=== PATIENT | female | born 1945 | race Caucasian/White ===

== ENCOUNTER 2017-08-16 18:33 | Emergency (ER) | payer BC ==
[~2017-08-16] VITALS: Ht 167.6 cm; Wt 92.0 kg
[~2017-08-16 18:33] MED LIST: ASPI-183 PO; BOSW5TAB PO; CALC-179 PO; COQ-100C2 PO; EZET10 PO; FISH500C PO; IBUP-232 PO; LOSA100T3 PO; PERC5TAB12 PO; ROSU40 PO; ZINC10LO4 PO
[2017-08-16 18:39] VITALS: BP 120/76; PULSE 106; RESP 18; TEMP 102.9; O2SAT 95
--- NOTE | 2017-08-16 18:53 | PD ---
HPI Chief Complaint: Skin Problem Time Seen by Provider: 18:50 Travel History International Travel<30 days: No Contact w/Intl Traveler<30days: No Traveled to known affect area: No History of Present Illness HPI Patient is a 72-year-old female presents emergency department for evaluation of fever and not feeling well and having some mild discharge from her abdomen. 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 She states she's been battling this for nearly 2 decades. She is concerned that she might have a recurrent infection. She also endorses some mild cough and congestion and states she just been feeling one down for the past 24-48 hours. States his symptoms are moderate, roughly worsening, over the past 24-48 hours, context as above, associated signs symptoms as above PFSH Past Medical History Hx Anticoagulant Therapy: No Cardiovascular Problems: Yes (HYPERLIPIDEMIA,HTN) High Cholesterol: Yes Chemotherapy: No Cerebrovascular Accident: No Diabetes: No Diminished Hearing: No Hypertension: Yes Respiratory: No Tetanus Vaccination: Unknown Influenza Vaccination: Yes Tubal Ligation: Yes Past Surgical History Abdominal Surgery: Yes Hysterectomy: Yes Mastectomy: Yes (BILATERAL) Other Surgery: Yes (MASECTOMY AND RECONSTRUCTION SX) Social History Alcohol Use: Yes (SOCIALLY) Tobacco Use: No Substance Use: No Allergies-Medications (Allergen,Severity, Reaction): Coded Allergies: No Known Allergies (Unverified Allergy, Unknown, 08/16/17) Reported Meds & Prescriptions Reported Meds & Active Scripts Active Keflex (Cephalexin) 500 Mg Cap 500 Mg PO Q6H 7 Days Reported [Magnesium ] 138 Mg PO DAILY Magnesium Citrate 100 Mg Tab 100 Mg PO DAILY PRN Calcium Carbonate 1,500 Mg Tab 333 Mg PO DAILY 1,500 mg calcium carbonate (600 mg elemental calcium) Zetia (Ezetimibe) 10 Mg Tab 10 Mg PO DAILY Osteo Bi-Flex One A Day (Ngykiyimj-Bmcyckquvhm-Pzjgpgd) 1 Tab 1 Tab PO DAILY Zinc (Zinc Gluconate) 10 Mg Juan Antonio 5 Mg PO DAILY Fish Oil ([place]-3 Fatty Acids) 500 Mg Cap 1 Cap PO DAILY Aspirin 325 Mg Tab 325 Mg PO DAILY Losartan-Hydrochlorothiazide 100-12.5 Mg Tab 1 Tab PO DAILY Crestor (Rosuvastatin Calcium) 40 Mg Tab 40 Mg PO DAILY Review of Systems Except as stated in HPI: all other systems reviewed are Neg Physical Exam Narrative GENERAL: Well-developed, overweight female appears well and in no obvious distress, nontoxic appearance. There is features younger than stated age. SKIN: Extensive well healed wounds with 2 small ulcerative areas on the abdomen consistent with skin grafting chronic nonhealing ulcers. No discharge could be expressed from the wound by me. There is no cellulitis on the wounds. There is no generalized rash. HEAD: Atraumatic. Normocephalic. EYES: Pupils equal and round. No scleral icterus. No injection or drainage. ENT: No nasal bleeding or discharge. Mucous membranes pink and moist. TMs clear bilaterally, oropharynx clear moist. NECK: Trachea midline. No JVD. CARDIOVASCULAR: Regular rate and rhythm. No murmur appreciated. RESPIRATORY: No accessory muscle use. Clear to auscultation. Breath sounds equal bilaterally. GASTROINTESTINAL: Abdomen soft, non-tender, nondistended. Hepatic and splenic margins not palpable. No rebound no percussive tenderness. Normal active bowel sounds. MUSCULOSKELETAL: No obvious deformities. No clubbing. No cyanosis. No edema. NEUROLOGICAL: Awake and alert. And oriented 4. No obvious cranial nerve deficits. Motor grossly within normal limits. Normal speech. PSYCHIATRIC: Appropriate mood and affect; insight and judgment normal. Data Data Last Documented VS Vital Signs Date Time Temp Pulse Resp B/P (MAP) Pulse Ox O2 Delivery O2 Flow Rate FiO2 08/16/17 22:21 87 16 128/72 (90) 99 08/16/17 20:44 99.6 Room Air Orders Orders Sepsis Workup Initiated (08/16/17 ) Complete Blood Count With Diff (08/16/17 18:50) Comprehensive Metabolic Panel (08/16/17 18:50) Prothrombin Time / Inr (Pt) (08/16/17 18:50) Act Partial Throm Time (Ptt) (08/16/17 18:50) Lactic Acid Sepsis Protocol (08/16/17 18:50) Magnesium (Mg) (08/16/17 18:50) Phosphorus (Po4) (08/16/17 18:50) Lipase (08/16/17 18:50) Ckmb (Isoenzyme) Profile (08/16/17 18:50) Troponin I (08/16/17 18:50) Urinalysis - C+S If Indicated (08/16/17 18:50) Blood Culture (1/16/18 18:50) Chest, Single Ap (08/16/17 18:50) Blood Glucose (08/16/17 18:50) Ecg Monitoring (08/16/17 18:50) Iv Access Insert/Monitor (08/16/17 18:50) Oximetry (08/16/17 18:50) Oxygen Administration (08/16/17 18:50) Ct Abd/Pel W Iv Contrast(Rout) (08/16/17 18:50) Sodium Chlor 0.9% 1000 Ml Inj (Ns 1000 M (08/16/17 19:00) Piperacil-Tazo 4.5 Gm Premix (Zosyn 4.5 (08/16/17 19:00) Vancomycin Inj (Vancomycin Inj) (08/16/17 19:00) Urine Culture (08/16/17 19:05) Acetaminophen (Tylenol) (08/16/17 21:00) Influenzae A/B Antigen (08/16/17 20:57) Iohexol 350 Inj (Omnipaque 350 Inj) (08/16/17 21:02) Ed Discharge Order (08/16/17 22:05) Labs Laboratory Tests Test 08/16/17 19:05 08/16/17 19:30 Urine Color YELLOW Urine Turbidity CLEAR Urine pH 7.5 Urine Specific [place] 1.020 Urine Protein NEG mg/dL Urine Glucose (UA) NEG mg/dL Urine Ketones TRACE mg/dL Urine Occult Blood TRACE Urine Nitrite NEG Urine Bilirubin NEG Urine Leukocyte Esterase SMALL Urine RBC 0-3 /hpf Urine WBC 15-19 /hpf Urine WBC Clumps OCC Urine Squamous Epithelial Cells 6-8 /hpf Urine Bacteria OCC /hpf Microscopic Urinalysis Comment CATH-CULTURE IND White Blood Count 5.8 TH/MM3 Red Blood Count 4.36 MIL/MM3 Hemoglobin 13.3 GM/DL Hematocrit 39.8 % Mean Corpuscular Volume 91.2 FL Mean Corpuscular Hemoglobin 30.5 PG Mean Corpuscular Hemoglobin Concent 33.4 % Red Cell Distribution Width 14.0 % Platelet Count 147 TH/MM3 Mean Platelet Volume 7.7 FL Neutrophils (%) (Auto) 81.1 % Lymphocytes (%) (Auto) 12.0 % Monocytes (%) (Auto) 6.1 % Eosinophils (%) (Auto) 0.4 % Basophils (%) (Auto) 0.4 % Neutrophils # (Auto) 4.7 TH/MM3 Lymphocytes # (Auto) 0.7 TH/MM3 Monocytes # (Auto) 0.4 TH/MM3 Eosinophils # (Auto) 0.0 TH/MM3 Basophils # (Auto) 0.0 TH/MM3 CBC Comment DIFF FINAL Differential Comment Prothrombin Time 11.3 SEC Prothromb Time International Ratio 1.1 RATIO Activated Partial Thromboplast Time 29.4 SEC Blood Urea Nitrogen 14 MG/DL Creatinine 0.74 MG/DL Random Glucose 105 MG/DL Total Protein 7.6 GM/DL Albumin 3.7 GM/DL Calcium Level 8.6 MG/DL Phosphorus Level 2.2 MG/DL Magnesium Level 2.1 MG/DL Alkaline Phosphatase 55 U/L Aspartate Amino Transf (AST/SGOT) 29 U/L Alanine Aminotransferase (ALT/SGPT) 29 U/L Total Bilirubin 0.3 MG/DL Sodium Level 137 MEQ/L Potassium Level 3.8 MEQ/L Chloride Level 104 MEQ/L Carbon Dioxide Level 25.5 MEQ/L Anion Gap 8 MEQ/L Estimat Glomerular Filtration Rate 77 ML/MIN Lactic Acid Level 1.4 mmol/L Total Creatine Kinase 64 U/L Troponin I LESS THAN 0.02 NG/ML Lipase 202 U/L MDM Medical Decision Making Medical Screen Exam Complete: Yes Emergency Medical Condition: Yes Differential Diagnosis Sirs, sepsis, abdominal wall abscess, UTI, pneumonia, influenza. Narrative Course Patient roomed emergency department, febrile and tachycardic on arrival these vital signs improved drastically with fluids and Tylenol. The patient does not have an elevated white count nor left shift. She has chronically distorted abdomen and to ulcerative lesions on her abdomen wall which do need further workup. A CT scan has been ordered which shows no fluid collection no abscess and no internal derangement which is acute. She does have chronic diverticulosis without diverticulitis. Patient on revisit appears quite well vital signs having normalized the patient does have some evidence for urinary tract infection but states that she did not wait thoroughly prior to giving us urine specimen. Vancomycin and Zosyn were ordered for possibility of abdominal wall sepsis but no source of external infection has yet been identified. The patient was counseled extensively on the abnormal vital signs and she was offered admission to the hospital but states that she would rather go home at this time as she is feeling much better. I discussed that she could continue to become ill and I will happy to prescribe her antibiotics for presumed urinary tract infection but if she starts to feel worse she needs to return to the emergency department or the closest emergency department as soon as possible. She will be provided copies of her workup today as she is traveling throughout the state on vacation. At this time I think is reasonable for the patient to go home as her vital signs stabilized and her laboratory workup as well as CAT scan workup is benign. Diagnosis Primary Impression: UTI (urinary tract infection) Additional Impression: Fever Med/Other Pt SpecificInfo: Prescription(s) given Scripts Cephalexin (Keflex) 500 Mg Cap 500 MG PO Q6H for Infection for 7 Days, #28 CAP 0 Refills Prov: Fredis Forde MD 08/16/17 Disposition: 01 DISCHARGE HOME Condition: Stable Fredis Forde MD Aug 16, 2017 18:53
[2017-08-16] MEDS ORDERED: VANCOMYCIN 1,000 MG/NS 250 ML IV ONE ×2 (19:00)
[2017-08-16] MEDS ORDERED: PIPERACIL-TAZO 4.5 GM PREMIX 100 ML IV ONE (19:00)
[2017-08-16] MEDS ORDERED: SODIUM CHLOR 0.9% 1000 ML INJ 1,000 ML IV ONE (19:00)
[2017-08-16] MEDS ORDERED: VANCOMYCIN INJ 200 ML IV ONE (19:00)
[2017-08-16] MEDS ORDERED: MAGNESIUM PO (19:01)
[2017-08-16] MEDS ORDERED: CALC600T4 PO (19:01)
[2017-08-16] MEDS ORDERED: MAGN100T2 PO (19:01)
[2017-08-16 19:21] LABS: BILIRUBIN, URINE NEG (NEG); BLOOD, URINE TRACE (NEG); GLUCOSE,URINE NEG (NEG); KETONE, URINE TRACE mg/dL (NEG); NITRITE,URINE NEG (NEG); PH, URINE 7.5 (5.0-8.5); URINE LEUKOCYTE ESTERASE SMALL (NEG)
[2017-08-16 19:33] LABS: RBC, URINE 0-3 /hpf (0-3); URINE COLOR YELLOW (YELLW/STRAW); WBC, URINE 15-19 /hpf (0-5); WHITE BLOOD CELL CLUMPS OCC
[2017-08-16 19:34] LABS: BACTERIA, URINE OCC /hpf
[2017-08-16 19:38] LABS: AUTOMATED NEUTROPHIL # 4.7 TH/MM3 (1.8-7.7); BASOPHIL % 0.4 % (0.0-2.0); EOSINOPHIL % 0.4 % (0.0-4.0); HEMATOCRIT 39.8 % (35.0-46.0); HEMOGLOBIN 13.3 GM/DL (11.6-15.3); LYMPHOCYTE # 0.7 TH/MM3 (1.0-4.8); MEAN CELL VOLUME 91.2 FL (80.0-100.0); MEAN CORPUSCULAR HEMOGLOBIN 30.5 PG (27.0-34.0); MEAN CORPUSCULAR HGB CONC 33.4 % (32.0-36.0); MEAN PLATELET VOLUME 7.7 FL (7.0-11.0); MONO % 6.1 % (0.0-8.0); MONOCYTE # 0.4 TH/MM3 (0-0.9); NEUT % 81.1 % (16.0-70.0); PLATELET COUNT 147 TH/MM3 (150-450); RED BLOOD COUNT 4.36 MIL/MM3 (4.00-5.30); WHITE BLOOD COUNT 5.8 TH/MM3 (4.0-11.0)
[2017-08-16 19:47] LABS: CHLORIDE 104 MEQ/L (98-107); SODIUM (NA) 137 MEQ/L (136-145)
[2017-08-16 19:51] VITALS: BP 173/65; PULSE 102; RESP 20; O2SAT 96
[2017-08-16 19:51] LABS: ALBUMIN 3.7 GM/DL (3.4-5.0); CALCIUM 8.6 MG/DL (8.5-10.1)
[2017-08-16 19:52] LABS: BICARBONATE 25.5 MEQ/L (21.0-32.0); BLOOD UREA NITROGEN 14 MG/DL (7-18); GLUCOSE,RANDOM 105 MG/DL (74-106); LIPASE 202 U/L (73-393); MAGNESIUM 2.1 MG/DL (1.5-2.5)
[2017-08-16 19:54] LABS: ALT (GPT) 29 U/L (10-53); AST (GOT) 29 U/L (15-37); CREATININE 0.74 MG/DL (0.50-1.00); GLOMERULAR FILTRATION RATE 77 ML/MIN (>89)
[2017-08-16 19:55] LABS: PHOSPHORUS 2.2 MG/DL (2.5-4.9)
--- NOTE | 2017-08-16 19:55 | RADRPT ---
EXAM DATE/TIME: 08/16/2017 19:33 [facility] COMPARISON: No previous studies available for comparison. INDICATIONS : Fever for 2 days. MEDICAL HISTORY : Hypertension. Hypercholesterolemia. Carcinoma, breast. Hyperlipdemia. SURGICAL HISTORY : Mastectomy, bilateral. Tubal ligation. Hysterectomy. ENCOUNTER: Initial ACUITY: 2 days PAIN SCORE: 0/10 LOCATION: Bilateral chest FINDINGS: 2 portable frontal views of the chest show linear scarring versus atelectasis within the lingula. No infiltrates or effusions. Heart is normal in size. Old right-sided rib fractures. Scoliotic and degen erative thoracic spine. CONCLUSION: No acute cardiopulmonary disease. Forest Rhoades Jr., MD on August 16, 2017 at 19:51 Board Certified Radiologist. This report was verified electronically.
[2017-08-16 19:56] LABS: INTERNATIONAL NORMALIZED RATIO 1.1 RATIO; PROTHROMBIN TIME - PATIENT 11.3 SEC (9.8-11.6); TOTAL BILIRUBIN ADULT 0.3 MG/DL (0.2-1.0); TOTAL PROTEIN 7.6 GM/DL (6.4-8.2)
[2017-08-16 19:57] LABS: ALKALINE PHOSPHATASE 55 U/L (45-117)
[2017-08-16 20:00] LABS: TROPONIN I LESS THAN 0.02 NG/ML (0.02-0.05)
[2017-08-16 20:44] VITALS: BP 158/64; PULSE 87; RESP 16; TEMP 99.6; O2SAT 99
[2017-08-16] MEDS ORDERED: ACETAMINOPHEN 325 MG TAB PO ONE (21:00)
[2017-08-16] MEDS ORDERED: IOHEXOL 350 MG/ML 10 ML VIAL (for RAD DIAG) IVCONTRAST ONE (21:02)
--- NOTE | 2017-08-16 21:04 | RADRPT ---
EXAM DATE/TIME: 08/16/2017 20:21 [facility] COMPARISON: CT ABDOMEN & PELVIS W CONTRAST, October 14, 2014, 1:59. INDICATIONS : Abdominal pain. IV CONTRAST: 100 cc Omnipaque 350 (iohexol) IV ORAL CONTRAST: No oral contrast ingested. RADIATION DOSE: 21.22 CTDIvol (mGy) MEDICAL HISTORY : Hypertension. SURGICAL HISTORY : Mastectomy, bilateral. Hysterectomy. ENCOUNTER: Initial ACUITY: 4 - 6 days PAIN SCALE: 6/10 LOCATION: Bilateral abdomen. TECHNIQUE: Volumetric scanning of the abdomen and pelvis was performed. Using automated exposure control and ad justment of the mA and/or kV according to patient size, radiation dose was kept as low as reasonably achievable to obtain optimal diagnostic quality images. DICOM format image data is available electro nically for review and comparison. FINDINGS: LOWER LUNGS: The visualized lower lungs are clear. LIVER: Homogeneous density without lesion. A tiny hepatic cyst is stable within the left lobe. There is no dilation of the biliary tree. No calcified gallstones. SPLEEN: Normal size without lesion. PANCREAS: Within normal limits. KIDNEYS: Normal in size and shape. There is no mass, stone or hydronephrosis. ADRENAL GLANDS: Within normal limits. VASCULAR: There is no aortic aneurysm. BOWEL/MESENTERY: The stomach, small bowel, and colon demonstrate no acute abnormality. There is no free intraperitone al air or fluid. Scattered colonic diverticulosis without acute inflammation. ABDOMINAL WALL: Prior anterior abdominal wall repair. No hernia observed. RETROPERITONEUM: There is no lymphadenopathy. BLADDER: No wall thickening or mass. REPRODUCTIVE: Within normal limits. Prior hysterectomy. INGUINAL: There is no lymphadenopathy or hernia. MUSCULOSKELETAL: Within normal limits for patient age. CONCLUSION: 1. No acute abnormality. 2. Colonic diverticulosis. Forest Rhoades Jr., MD on August 16, 2017 at 20:58 Board Certified Radiologist. This report was verified electronically.
[2017-08-16] MEDS ORDERED: CEPH-460 PO (22:05)
[2017-08-16 22:21] VITALS: BP 128/72
== END 2017-08-16 22:26 | disposition home or self-care (01) ==
LOC: PHED 18:33
DX: N39.0 Urinary tract infection, site not specified (principal); R50.9 Fever, unspecified; K57.30 Diverticulosis of large intestine without perforation or abscess without bleeding; R78.81 Bacteremia; I10 Essential (primary) hypertension; E78.00 Pure hypercholesterolemia, unspecified; B96.20 Unspecified Escherichia coli [E. coli] as the cause of diseases classified elsewhere; Z85.3 Personal history of malignant neoplasm of breast; Z79.82 Long term (current) use of aspirin; Z79.899 Other long term (current) drug therapy
CPT/HCPCS: 71045; 74177; 80053; 81001; 82550; 83605; 83690; 83735; 84100; 84484; 85025; 85610; 85730; 87040; 87077; 87086; 87185; 87186; 87205; 87804; 96365; 96366; 99285; J2543; J3370; J7030; J7050; Q9967